=== PATIENT | female | born 1975 | race Caucasian/White ===

== ENCOUNTER 2016-11-23 11:06 | Day surgery (SDC) | payer OTHER ==
[~2016-11-23] VITALS: Ht 170.2 cm; Wt 90.7 kg
[~2016-11-23 11:06] MED LIST: DUEXIS 800-26.1 EACH PO; EXCEDRIN MIGRA1 EAC3 PO; FIORINAL 50-321 EACH PO; OMEPRAZOLE40 M1 PO; ORTHO CYCLEN1 TABLET PO
[2016-11-23 11:32] VITALS: BP 135/94
[2016-11-23] MEDS ORDERED: IBUPROFEN800 MG PO (13:38)
[2016-11-23] MEDS ORDERED: ENDOCET 5-3251 EACH PO (13:38)
[2016-11-23 15:00] VITALS: BP 141/86
[2016-11-23 15:53] VITALS: BP 110/60
[2016-11-23 16:34] VITALS: BP 143/90
== END 2016-11-23 16:45 | disposition home or self-care (01) ==
LOC: SDC 11:06
PROC: 0UT74ZZ Resection of Bilateral Fallopian Tubes, Percutaneous Endoscopic Approach (ICD-10-PCS; principal; 2016-11-23)
DX: Z30.2 Encounter for sterilization (principal); K66.0 Peritoneal adhesions (postprocedural) (postinfection); Z80.3 Family history of malignant neoplasm of breast; Z82.49 Family history of ischemic heart disease and other diseases of the circulatory system; Z83.3 Family history of diabetes mellitus; Z80.8 Family history of malignant neoplasm of other organs or systems
CPT/HCPCS: 88302; J0131; J0690; J1100; J1170; J1885; J2250; J2405; J3010

== ENCOUNTER 2017-01-23 15:21 | Emergency (ER) | payer OTHER ==
[~2017-01-23] VITALS: Ht 170.2 cm; Wt 94.7 kg
[~2017-01-23 15:21] MED LIST changes: +ENDOCET 5-3251 EACH PO; +IBUPROFEN800 MG PO
[2017-01-23 16:09] LABS: HEMATOCRIT 38.2 % (36.0-46.0); MCH 30.9 PG (29.0-34.0); MCHC 34.8 G/DL (30.0-36.0); MCV 88.8 FL (83-99); MEAN PLAT.VOLUME 9.5 uM^3 (9.5-12.4); PLATELET COUNT 300 K/uL (156-360); WHITE BLOOD COUNT 7.7 K/uL (4.1-10.2)
[2017-01-23 16:17] LABS: CHLORIDE 104 mEq/L (99-109); SODIUM 136 mEq/L (136-147)
[2017-01-23 16:19] LABS: GLUCOSE 96 mg/dL (70-99)
[2017-01-23 16:21] LABS: ANION GAP 7 MEQ/L (2-14); TOTAL BILIRUBIN 0.4 mg/dL (0.0-1.0)
[2017-01-23 16:23] LABS: ALKALINE PHOSPHATASE 63 IU/L (3-129); GFR ESTIMATE (CALCULATED) > 59 mL/min/
[2017-01-23 16:24] LABS: UREA NITROGEN (BUN) 15 mg/dL (9-23)
[2017-01-23 16:27] LABS: LIPASE 96 U/L (1.0-51.0)
[2017-01-23 16:32] LABS: QUANTITATIVE HCG < 4.0 MIU/ML
[2017-01-23 16:52] LABS: ADD MIUA? YES; BILIRUBIN NEGATIVE; BLOOD SMALL; COLOR YELLOW ((YELLOW)); GLUCOSE (STRIP) NEGATIVE; KETONES NEGATIVE; LEUKOCYTES NEGATIVE; NITRITE NEGATIVE; PROTEIN (STRIP) NEGATIVE; SPECIFIC GRAVITY 1.015 (1.000-1.030); UROBILINOGEN 0.2 MG/DL (0.2-1.0)
[2017-01-23 16:54] LABS: BACTERIA RARE /HPF; EPITHELIAL CELLS RARE /HPF; MUCUS TRACE /LPF; RED BLOOD CELLS 0-5 /HPF (0-5); WHITE BLOOD CELLS 0-5 /HPF (0-5)
[2017-01-23] MEDS ORDERED: PERCOCET 5/31 TABLET PO (19:58)
[2017-01-23] MEDS ORDERED: ZOFRAN ODT4 MG PO (19:58)
[2017-01-23 20:26] VITALS: BP 119/87
== END 2017-01-23 20:30 | disposition home or self-care (01) ==
LOC: EME 15:21 → EXP 15:21
PROVIDERS: Physician Assistant
DX: R10.31 Right lower quadrant pain (principal); K21.9 Gastro-esophageal reflux disease without esophagitis
CPT/HCPCS: 74177; 80053; 81003; 83690; 84702; 85027; 99281; 99285; J2270; J2405; J3010; J7030